=== PATIENT | male | born 1975 | race Caucasian/White ===

== ENCOUNTER 2021-09-25 08:56 | Day surgery (SDC) | payer MEDICAID ==
[2021-09-24 10:41] LABS: BASOPHILS # (AUTO) 0.1 K/uL (0.00-0.22); BASOPHILS % (AUTO) 0.9 % (0.0-2.0); EOSINOPHILS # (AUTO) 0.1 K/uL (0-0.4); EOSINOPHILS % (AUTO) 1.3 % (0.0-4.0); HEMOGLOBIN 16.4 g/dL (12.0-18.0); LYMPHOCYTES # (AUTO) 1.3 K/uL (2.0-11.5); MEAN CORPUSCULAR HEMOGLOBIN 33 pg (27-31); MEAN CORPUSCULAR HGB CONC 34 g/dL (33-37); MONOCYTES # (AUTO) 0.4 K/uL (0.8-1.0); NEUTROPHILS # (AUTO) 4.3 K/uL (1.8-7.7); NEUTROPHILS % (AUTO) 69.8 % (42.2-75.2); PLATELET COUNT (AUTO) 254 K/uL (140-450); RED BLOOD CELL COUNT(AUTO) 4.94 MIL/uL (4.20-6.10); RED CELL DISTRIBUTION WIDTH 13.1 % (11.6-13.7); WHITE BLOOD COUNT (AUTO) 6.1 K/uL (4.8-10.8)
[2021-09-24 10:45] LABS: ANION GAP 12.1 (8-16); CARBON DIOXIDE 28.4 mmol/L (21-32); CREATININE 1.1 mg/dL (0.6-1.3); POTASSIUM 4.5 mmol/L (3.5-5.1); TOTAL BILIRUBIN 0.7 mg/dL (0.0-1.0)
[~2021-09-25] VITALS: Ht 172 cm; Wt 68.0 kg
[2021-09-25] MEDS ORDERED: BUPIVACAINE-MPF/EPI 0.25% 30 ML VIAL INJ ONE (11:33)
[2021-09-25] MEDS ORDERED: LIDOCAINE 1% 500 MG/50 ML VIAL ONE (11:45)
[2021-09-25] MEDS ORDERED: SEVOFLURANE 250 ML BTL INH ONE (11:48)
[2021-09-25] MEDS ORDERED: PROPOFOL 200 MG/20 ML VIAL IV ONE (11:51)
[2021-09-25] MEDS ORDERED: ROCURONIUM 50 MG/5 ML VIAL IV ONE (11:51)
[2021-09-25] MEDS ORDERED: HYDROmorphone PFS 2 MG/ML SYR ONE (11:51)
[2021-09-25] MEDS ORDERED: KETOROLAC 30 MG/ML VIAL ONE (12:33)
[2021-09-25] MEDS ORDERED: ONDANSETRON 4 MG/2 ML VIAL ONE (12:33)
[2021-09-25] MEDS ORDERED: DEXAMETHASONE 4 MG/ML VIAL ONE ×2 (12:33→12:34)
[2021-09-25] MEDS ORDERED: NEOSTIGMINE 1:1000 10 MG/10 ML VIAL ONE (13:29)
[2021-09-25] MEDS ORDERED: GLYCOPYRROLATE 0.2 MG/ML VIAL ONE (13:29)
[2021-09-25] MEDS ORDERED: HYDROmorphone 1 MG/ML AMP IVP PRN ×2 (13:55→14:20)
[2021-09-25] MEDS ORDERED: NACL 0.9% 1,000 ML IV SCH (13:55)
[2021-09-25] MEDS ORDERED: MORPHINE SULFATE 2 MG/ML SYR IVP PRN (13:55)
[2021-09-25] MEDS ORDERED: MORPHINE SULFATE 4 MG/ML SYR IV PRN (13:55)
[2021-09-25] MEDS ORDERED: ONDANSETRON 4 MG/2 ML VIAL IV PRN (13:55)
[2021-09-25] MEDS ORDERED: HYDROcodone/APAP 5/325 MG 1 TAB TAB PO PRN (13:55)
[2021-09-25] MEDS ORDERED: ONDANSETRON 4 MG/2 ML VIAL IVP PRN (14:20)
[2021-09-25] MEDS ORDERED: MEPERIDINE 25 MG/ML SYR IVP PRN (14:20)
== END 2021-09-25 15:30 | disposition home or self-care (01) ==
LOC: MMU 08:56 → MDS 08:56
PROVIDERS: ATTEND Surgery
DX: K80.10 Calculus of gallbladder with chronic cholecystitis without obstruction (principal); K42.9 Umbilical hernia without obstruction or gangrene; F17.210 Nicotine dependence, cigarettes, uncomplicated; Z79.899 Other long term (current) drug therapy
CPT/HCPCS: 36415; 47562; 49585; 71045; 80053; 82374; 85025; 86886; 86900; 86901; 87426; J0690; J1100; J1170; J1885; J2001; J2405; J2704; J2710; J3490; J7030; J7060

== ENCOUNTER 2021-10-04 16:53 | Emergency (ER) | payer MEDICAID ==
[~2021-10-04] VITALS: Ht 170.2 cm; Wt 72.1 kg
[2021-10-04 16:57] VITALS: BP 116/83
--- NOTE | 2021-10-04 17:14 | NUR ---
PT AMBULATED TO BED, STEADY GAIT
[2021-10-04] MEDS ORDERED: NACL 0.9% 1,000 ML IV ONE (17:25)
[2021-10-04] MEDS ORDERED: ONDANSETRON 4 MG/2 ML VIAL IVP ONE (17:25)
[2021-10-04] MEDS ORDERED: MORPHINE SULFATE 4 MG/ML SYR IVP ONE (17:25)
--- NOTE | 2021-10-04 17:30 | NUR ---
45 y/o Male BIB S/P lap michael/Hernia repair with Dr Farrell on 09/25. Pt presents with pain x 4 surgical sites. Sites remains closed with glue and edges of surgical incisions are well approximated. No s/sx of active bleeeding at this time. Stomach is soft and tender x 4 quadrants. +N, denies V/D/CP. Pmhx: Lap Michael, umbilical hernica. Allergies: Denies Home meds: Denies
--- NOTE | 2021-10-04 17:30 | NUR ---
BLOOD WORK COLLECTED AND HANDED TO PAOLA MOURA
--- NOTE | 2021-10-04 17:30 | NUR ---
DR YE AT BEDSIDE EXAMINING PT
--- NOTE | 2021-10-04 17:49 | NUR ---
URINE PLACED IN DIRTY UTILITY
[2021-10-04 18:09] LABS: BASOPHILS # (AUTO) 0.1 K/uL (0.00-0.22); EOSINOPHILS # (AUTO) 0.1 K/uL (0-0.4); EOSINOPHILS % (AUTO) 1.1 % (0.0-4.0); HEMATOCRIT 44.1 % (36-52); HEMOGLOBIN 15.2 g/dL (12.0-18.0); LYMPHOCYTES # (AUTO) 1.5 K/uL (2.0-11.5); LYMPHOCYTES % (AUTO) 20.6 % (20.5-51.1); MEAN CORPUSCULAR HEMOGLOBIN 33 pg (27-31); MEAN CORPUSCULAR HGB CONC 34 g/dL (33-37); MEAN CORPUSCULAR VOLUME 95.8 fL (80-94); MONOCYTES # (AUTO) 0.6 K/uL (0.8-1.0); MONOCYTES % (AUTO) 7.7 % (1.7-9.3); NEUTROPHILS % (AUTO) 69.6 % (42.2-75.2); PLATELET COUNT (AUTO) 263 K/uL (140-450); RED BLOOD CELL COUNT(AUTO) 4.61 MIL/uL (4.20-6.10); RED CELL DISTRIBUTION WIDTH 12.6 % (11.6-13.7); WHITE BLOOD COUNT (AUTO) 7.2 K/uL (4.8-10.8)
[2021-10-04 18:25] LABS: ALBUMIN 3.5 g/dL (3.4-5.0); ANION GAP 10.1 (8-16); CARBON DIOXIDE 30.5 mmol/L (21-32); POTASSIUM 3.6 mmol/L (3.5-5.1); TOTAL BILIRUBIN 0.6 mg/dL (0.0-1.0)
--- NOTE | 2021-10-04 18:43 | NUR ---
PT TAKEN TO CT SCAN VIA W/C
--- NOTE | 2021-10-04 18:51 | NUR ---
PT RETURNED FROM CT SCAN
--- NOTE | 2021-10-04 19:34 | NUR ---
Pt report given to DOREEN LERMA. Transfer of care at this time.
[2021-10-04] MEDS ORDERED: FAMOTIDINE 20 MG/2 ML VIAL IVP ONE (19:45)
[2021-10-04] MEDS ORDERED: ALUMINUM HYD/MAG/SIMETHICONE 30 ML UDC PO ONE (19:45)
[2021-10-04] MEDS ORDERED: DICYCLOMINE HCL LIQUID 20 MG, ALUMINUM HYD/MAG/SIMETHICONE 30 ML, LIDOCAINE VISCOUS 2% ... PO ONE ×3 (19:45)
[2021-10-04] MEDS ORDERED: ACET-5629 PO (19:50)
[2021-10-04] MEDS ORDERED: OMEP40EC23 PO (19:50)
[2021-10-04] MEDS ORDERED: ACET-2619 PO (19:50)
[2021-10-04] MEDS ORDERED: BISM262O11 PO (19:50)
[2021-10-04] MEDS ORDERED: ONDA-188 PO (19:52)
[2021-10-04] MEDS ORDERED: ALUMINUM HYD/MAG/SIMETHICONE 30 ML UDC ONE (20:02)
[2021-10-04] MEDS ORDERED: DICYCLOMINE HCL LIQUID 10 MG/5 ML UDC ONE (20:02)
--- NOTE | 2021-10-04 20:50 | NUR ---
Patient discharged with v/s stable. Written and verbal after care instructions given and explained. Patient alert, oriented and verbalized understanding of instructions. Ambulatory with steady gait. All questions addressed prior to discharge. ID band removed. Patient advised to follow up with PMD. Rx of TYLENOL, PRILOSEC, ZOFRAN given. Patient educated on indication of medication including possible reaction and side effects. Opportunity to ask questions provided and answered.
== END 2021-10-04 20:50 | disposition home or self-care (01) ==
LOC: MED 16:53
DX: G89.18 Other acute postprocedural pain (principal); R10.13 Epigastric pain; K21.9 Gastro-esophageal reflux disease without esophagitis; R11.0 Nausea; Z90.49 Acquired absence of other specified parts of digestive tract; Z98.890 Other specified postprocedural states; Z79.899 Other long term (current) drug therapy
CPT/HCPCS: 36415; 74176; 80053; 83690; 85025; 96361; 96374; 96375; 99284; J2270; J2405; J3490; J7030